=== PATIENT | female | born 1955 | race Caucasian/White ===

== ENCOUNTER → 2017-04-12 | Outpatient (CLI) | payer OTHER ==
[2014-03-11 11:44] VITALS: BP 105/74
[~2017-04-12] MED LIST: AMIO200T PO; Diltiazem Hcl PO; ESCITALOPRAM OX20 MG PO; ESTR1TAB9 PO; LEVO150T5 PO; LOSA1TAB17 PO; LOSA50TA2 PO; METO25TA2 PO; RIVA10TA PO
--- NOTE | 2017-04-12 13:52 | RAD ---
DATE: 04/12/2017 EXAM: DIGITAL SCREEN BILAT W/CAD HISTORY: Screening COMPARISON: 08/04/2008. This study was interpreted with the benefit of Computerized Aided Detection (CAD). FINDINGS: Breast Density: HETERO The breast parenchyma Is heterogeneiously dense, which could reduce sensitivity of mammography. Breast parenchyma level C. No significant finding is seen in the right breast. In the left breast there are 2 reasonably well-defined densities. These may reflect cysts. [facility] compression imaging and targeted ultrasound are advised IMPRESSION: Masses in the left breast for which additional evaluation is suggested as outlined above. BI-RADS CATEGORY: 0 INCOMPLETE: NEED ADDITIONAL IMAGING EVAULATION AND/OR PRIOR MAMMOGRAMS FOR COMPARISON RECOMMENDED FOLLOW-UP: ADD ADDITIONAL IMAGING PQRS compliance statement: Patient information was entered into a reminder system with a target due date soon for the next mammogram. Mammography is a sensitive method for finding small breast cancers, but it does not detect them all and is not a substitute for careful clinical examination. A negative mammogram does not negate a clinically suspicious finding and should not result in delay in biopsying a clinically suspicious abnormality. "Our facility is accredited by the [employer] Mammography [employer]."
== END | disposition home or self-care (01) ==
LOC: MAMMO 13:05
PROVIDERS: ATTEND Advanced Practice Midwife
DX: Z12.31 Encounter for screening mammogram for malignant neoplasm of breast (principal)
CPT/HCPCS: G0202; 77067

== ENCOUNTER → 2017-04-20 | Outpatient (CLI) | payer OTHER ==
[2014-03-11 11:44] VITALS: BP 105/74
--- NOTE | 2017-04-20 14:11 | RAD ---
DATE: 04/20/2017 EXAM: DIGITAL DIAGNOSTIC LT, BREAST LEFT HISTORY: Possible abnormality seen on screening COMPARISON: Note is made of the screening examination 8 days earlier and the recommendation for additional imaging of the left breast This study was interpreted with the benefit of Computerized Aided Detection (CAD). FINDINGS: Breast Density: HETERO The breast parenchyma Is heterogeneiously dense, which could reduce sensitivity of mammography. Breast parenchyma level C. [facility] compression imaging and an ML view of the left breast were obtained. Corresponding to the findings on screening are parenchymal opacities. The parenchymal opacity laterally and somewhat superiorly in the breast is well defined and probably reflects a cyst. The opacity at the 6:00 position of the breasts is not well defined. Ultrasound was performed. There are several cysts in the breast. The mass at the 6:00 position however is not a cyst. It is solid and demonstrates flow and measures approximately 1.4 cm in greatest dimension. It is very suspect for primary malignancy. In addition to images submitted by the technologist a real-time examination was performed by me. The recommendation for biopsy of the mass at the 6:00 position of the left breast was communicated by me to the patient. IMPRESSION: IMPRESSION: Mass 6:00 position of the left breast suspect for primary malignancy BI-RADS CATEGORY: 4 SUSPICIOUS ABNORMALITY-BIOPSY SHOULD BE CONSIDERED RECOMMENDED FOLLOW-UP: BIO BIOPSY RECOMMENDED PQRS compliance statement: Patient information was entered into a reminder system with a target due date soon for the next mammogram. Mammography is a sensitive method for finding small breast cancers, but it does not detect them all and is not a substitute for careful clinical examination. A negative mammogram does not negate a clinically suspicious finding and should not result in delay in biopsying a clinically suspicious abnormality. "Our facility is accredited by the [employer] Mammography [employer]."
== END | disposition home or self-care (01) ==
LOC: MAMMO 12:56
PROVIDERS: ATTEND Advanced Practice Midwife
DX: N63 Unspecified lump in breast (principal)
CPT/HCPCS: 76641; G0206; 77065

== ENCOUNTER → 2017-04-27 | Day surgery (SDC) | payer OTHER ==
[~2017-04-27] MED LIST changes: +ASPI-482 PO; +HYDROmorphone 2 MG/ML VIAL IV PRN; +IV RINGERS,LACTATED 1000ML 1,000 ML IV SCH; +LIDOCAINE 1% PF 2 ML VIAL. ID PRN; +LIDOCAINE 2% PF Vial for OR 5 ML VIAL. ONE; -LOSA1TAB17 PO; +LOSA1TAB22 PO; +MORPHINE SULFATE 4 MG/ML DISP.SYRIN. IV PRN; +ONDANSETRON PF 4 MG/2 ML VIAL. IV PRN; +PROCHLORPERAZINE 10 MG/2 ML VIAL. IV PRN; +PROPOFOL 40 ML IV ONE; +fentaNYL PF VIAL 100 MCG/2 ML VIAL IV PRN
[2017-04-27 08:40] VITALS: BP 150/83
== END | disposition home or self-care (01) ==
LOC: SURG 06:57
PROVIDERS: ATTEND Internal Medicine Gastroenterology
DX: Z12.11 Encounter for screening for malignant neoplasm of colon (principal); K64.0 First degree hemorrhoids; K57.30 Diverticulosis of large intestine without perforation or abscess without bleeding; I48.91 Unspecified atrial fibrillation; I10 Essential (primary) hypertension; E03.9 Hypothyroidism, unspecified; Z90.49 Acquired absence of other specified parts of digestive tract; Z88.6 Allergy status to analgesic agent
CPT/HCPCS: 45378; J2704; J2001